=== PATIENT | male | born 1940 | race Caucasian/White ===

== ENCOUNTER 2019-05-12 09:52 | Day surgery (SDC) | payer MEDICARE, BC ==
[~2019-05-12] VITALS: Ht 177.8 cm; Wt 119.5 kg
[2019-05-12 09:58] VITALS: BP 143/83
[2019-05-12] MEDS ORDERED: LEVO100T PO (10:03)
[2019-05-12] MEDS ORDERED: AMLO2.5T2 PO (10:03)
[2019-05-12] MEDS ORDERED: DIGO125T PO (10:04)
[2019-05-12] MEDS ORDERED: COU1T PO (10:05)
[2019-05-12] MEDS ORDERED: COU7.5T PO (10:05)
[2019-05-12] MEDS ORDERED: CARV-50 PO (10:06)
[2019-05-12] MEDS ORDERED: LISI40TA4 PO (10:06)
[2019-05-12] MEDS ORDERED: HYDR25TA4 PO (10:07)
[2019-05-12] MEDS ORDERED: ATOR20TA PO (10:08)
[2019-05-12] MEDS ORDERED: TEST75GE TOP (10:09)
[2019-05-12] MEDS ORDERED: SEMA1PEN (10:10)
[2019-05-12] MEDS ORDERED: METF-438 PO (10:11)
[2019-05-12] MEDS ORDERED: LIDOcaine Viscous 15ml cup ONE (10:14)
[2019-05-12] MEDS ORDERED: fentaNYL/PF 50MCG/1 ML 2ML syringe ONE (10:14)
[2019-05-12] MEDS ORDERED: MIDAZolam 5mg/5ml vial ONE (10:14)
[2019-05-12] MEDS ORDERED: CYAN-51 PO (10:15)
[2019-05-12] MEDS ORDERED: EMPA25TA PO (10:15)
[2019-05-12] MEDS ORDERED: VITA0.4T7 PO (10:16)
[2019-05-12] MEDS ORDERED: CHOL200026 PO (10:17)
[2019-05-12 10:35] VITALS: BP 151/76
[2019-05-12 10:45] VITALS: BP 146/62
[2019-05-12 10:55] VITALS: BP 125/75
[2019-05-12 11:05] VITALS: BP 120/69
== END 2019-05-12 11:16 | disposition home or self-care (01) ==
LOC: GI LAB 09:52
PROVIDERS: ATTEND Internal Medicine Gastroenterology
DX: K74.60 Unspecified cirrhosis of liver (principal); I85.00 Esophageal varices without bleeding; K44.9 Diaphragmatic hernia without obstruction or gangrene; K29.70 Gastritis, unspecified, without bleeding; K31.7 Polyp of stomach and duodenum
CPT/HCPCS: 43239; 43251; C1773; G0500; J2250; J3010; J7040; 88305; 88342; 99152; 99153; A4620